=== PATIENT | female | born 1960 | race Caucasian/White ===

== ENCOUNTER 2017-01-29 12:30 | Observation (INO) | payer MEDICARE ==
--- OUTSIDE RECORDS SUMMARY | 2017-01-29 12:57 | XMS REPORT | Continuity of Care Document ---
:1960 Author Organization [facility] ([facility]) Address [address] [place] [address] Phone [phone] Care Team Providers Name Role Phone Nery Hoang Primary Care Provider [phone] Source Comments This disclosure is being made pursuant to the Care Everywhere program, applicable federal and state laws, and may not contain all informaitonavailable regarding this patient.[facility] ([facility]) Active Allergies and Adverse Reactions No Known Allergies Current Medications Prescription Sig. Disp. Refills Start Date End Date Status fluticasone-salmeterol Use 2 Puffs by Active (ADVAIR 500-50) inhaler inhalation daily. losartan 25 mg tablet Take 25 mg by mouth Active daily. ALBUTEROL SULFATE Use 2 Puffs by Active (VENTOLIN INH) inhalation as needed. cetirizine (ZYRTEC) 10 Take 10 mg by mouth Active mg tablet daily. HYDROcodone-acetaminoph Take 10-15 mL by 600 mL 0 04/23/2013 Active en (LORTAB) 7.5-500 mouth every 4 hours mg/15 mL solution UD as needed. cup Indications: PAIN sodium chloride 0.65 % use 1 [place] into the 45 mL 11 04/23/2013 Active nasal spray nose 2 times daily as needed. Indications: s/p fess amoxicillin-clavulanate Take 1 Tab by mouth 20 Tab 0 05/14/2013 Active 875-125 mg per tablet 2 times daily. Indications: ACUTE BACTERIAL SINUSITIS Active Problems Problem Noted Date Hypertension 04/22/2013 Chronic sinusitis 02/19/2013 NORA (obstructive sleep apnea) 01/22/2013 Obstructive sleep apnea 04/23/2012 Unspecified urinary incontinence 09/17/2008 Morbid obesity 05/09/2008 Social History Tobacco Use Types Packs/Day Years Used Date Never Smoker Smokeless Tobacco: Never Used Alcohol Use Drinks/Week oz/Week Comments No Last Filed Vital Signs Vital Sign Reading Time Taken Blood Pressure 143/78 06/04/2013 3:28 PM CDT Pulse 80 06/04/2013 3:28 PM CDT Temperature 36.4 C (97.5 F) 06/04/2013 3:28 PM CDT Respiratory Rate 18 06/04/2013 3:28 PM CDT Height 1.626 m (5' 4") 05/01/2013 1:42 PM CDT Weight 146.104 kg (322 lb 1.6 oz) 05/01/2013 1:42 PM CDT Body Mass Index 55.26 05/01/2013 1:42 PM CDT Oxygen Saturation 92% 04/23/2013 8:00 AM CDT Plan of Care Health Maintenance Due Date Last Done Comments HCV Screening 1960 Hepatitis B Vaccine (1 of 3 - Primary Series) 1960 Tdap Vaccine 1971 Lipid Disorder Screening 1978 MMR Vaccine 1978 Td Vaccine 1978 Cervical Cancer Screening 1990 Mammogram 2000 Colonoscopy 2010 Influenza Vaccine: Seasonal (#1) 05/23/2016 Results from Last 3 Months Not on file
--- NOTE | 2017-01-29 13:34 | HP ---
Chief Complaint - Chief Complaint Date of Service: 01/29/17 Time of Service: 13:21 Chief Complaint: Pain in belly button History of Present Illness: Pt had onset of umbilical pain that woke her from sleep at 0600 this morning associated with n/v and reported to the ER at [place]. She was given 70 mcg fentanyl , 2 mg dilaudid, 4 mg zofran. Attempts at reduction of an incarcerated umbilical hernia were unsuccessful. She was therefore transferred to our facility for definitive therapy. She complains of ongoing umbilical pain. Nausea has resolved with the zofran. - Narrative Narrative: PMFSH: Meds: Qvar inhaler Losartan 25 mg po daily Ambien 10mg po at HS Oxycodone-APAP ER 7.5/325 prn Morphine sulfate ER beads 60 mg po BID Celexa 10 mg po daily Senna 4 capsules daily Illnesses: Dyspnea Cardiovascular risk factors. HTN Asthma Operations: Hx previous incarcerated right flank hernia repaired with mesh Hysterectomy Social: Never smoker. No ETOH. No drug use. FH: Non-contributory - Patient's Past Medical History Patient History - Surgical Procedures: Hysterectomy, Hernia Repair Allergies/Adverse Reactions: Allergies Allergy/AdvReac Type Severity Reaction Status Date / Time Cephalosporins Allergy Verified 01/29/17 12:40 Exam - Exam Vital Signs: Vital Signs - Last Taken Temp 36.4 C L 01/29/17 12:33 Pulse 81 01/29/17 12:54 Resp 12 01/29/17 12:54 BP 142/72 01/29/17 12:54 Pulse Ox 95 01/29/17 12:54 Constitutional: Present: Alert, Oriented x3, Cooperative, No distress, Morbidly obese ENT Exam: Present: normal ENT inspection, hearing grossly normal Neck: Present: non-tender, normal inspection, trachea midline. Absent: lymphadenopathy (R), lymphadenopathy (L), thyromegaly Respiratory: Present: lungs clear, normal breath sounds, no respiratory distress , no accessory muscle use Cardiovascular/Chest: Present: regular rate, rhythm, no murmur Abdomen: Present: Normal bowel sounds, obese, other - Extreme pannus., hernia - Incarcerated infraumbilical hernia. No overlying discoloration. Tender to palpation. /Rectal: Present: Exam deferred Extremity: Present: normal inspection Skin Exam: Present: normal color, warm/dry Neurologic: Present: no motor/sensory deficits Appearance: Present: appropriate appearance, appropriate insight Eye contact: Present: cooperative, good eye contact, normal speech Thoughts: Present: normal thought pattern Assessment/Plan - Narrative Narrative: A: Strangulating umbilical hernia P: I recommend surgical exploration, reduction, and repair. We discussed the options, risks, and benefits of the procedure fully. She seems to understand, asks appropriate questions, and desires to proceed. We reviewed the possibility of compromised bowel, the need for resection, and/or stoma formation. - Assessment/Plan (1) Strangulated umbilical hernia Problem: Acute
[2017-01-29] MEDS ORDERED: LEVOFLOXACIN/D5W 750 MG/150 ML BAG IV SCH (13:45)
[2017-01-29 14:00] LABS: Hematocrit 44.9 % (37.0-47.0); Hemoglobin 14.7 gm/dL (12.5-16.0)
--- OUTSIDE RECORDS SUMMARY | 2017-01-29 14:02 | XMS REPORT | Continuity of Care Document ---
:1960 Author Organization [facility] ([facility]) Address [address] [place] [address] Phone [phone] Care Team Providers Name Role Phone Nery Hoang Primary Care Provider [phone] Source Comments This disclosure is being made pursuant to the Care Everywhere program, applicable federal and state laws, and may not contain all informaitonavailable regarding this patient.[facility] ([facility]) Active Allergies and Adverse Reactions No Known [...] PAIN sodium chloride 0.65 % use 1 [place] into the 45 mL 11 04/23/2013 Active [...]
[2017-01-29] MEDS ORDERED: HYDROmorphone HCL 1 MG/ML DISP.SYRIN IV ONE (14:03)
[2017-01-29] MEDS ORDERED: HYDROmorphone HCL 1 MG/ML DISP.SYRIN ONE (14:04)
[2017-01-29 14:07] LABS: Anion Gap 10.2 mmol/L (6.8-13.8); BUN/Creatinine Ratio 25.4 (9.0-21.6); Calcium * 9.4 mg/dL (7.9-10.9); Carbon Dioxide 29.8 mmol/L (24-32.6)
[2017-01-29] MEDS ORDERED: RINGERS SOLUTION,LACTATED 1,000 ML IV ONE ×2 (14:25→16:00)
[2017-01-29] MEDS ORDERED: BUPIVACAINE HCL/EPINEPHRINE 50 ML VIAL IJ ONE (15:00)
[2017-01-29] MEDS ORDERED: ONDANSETRON HCL/PF 2 MG/ML VIAL IV PRN (16:02)
[2017-01-29] MEDS: MORPHINE SULFATE 4 MG/ML SYRG IV PRN ×4 (16:23→23:28)
--- OUTSIDE RECORDS SUMMARY | 2017-01-29 16:41 | XMS REPORT | Continuity of Care Document ---
:1960 Author Organization [facility] ([facility]) Address [address] [place] [address] Phone [phone] Care Team Providers Name Role Phone Nery Hoang Primary Care Provider [phone] Source Comments This disclosure is being made pursuant to the Care Everywhere program, applicable federal and state laws, and may not contain all informaitonavailable regarding this patient.[facility] ([facility]) Active Allergies and Adverse Reactions No Known [...] PAIN sodium chloride 0.65 % use 1 [place] into the 45 mL 11 04/23/2013 Active [...]
[2017-01-29] MEDS ORDERED: HYDROmorphone HCL 2 MG/ML VIAL IV PRN (17:33)
[2017-01-29] MEDS ORDERED: HYDROmorphone HCL 1 MG/ML DISP.SYRIN IV PRN (17:33)
[2017-01-29] MEDS ORDERED: PROMETHAZINE HCL 12.5 MG in DEXTROSE 5 % IN WATER 50 ML IV PRN ×2 (17:34)
[2017-01-29] MEDS ORDERED: PROCHLORPERAZINE EDISYLATE 5 MG/ML VIAL IV PRN (17:34)
--- NOTE | 2017-01-29 18:56 | HP ---
Chief Complaint - Chief Complaint Date of Service: 01/29/17 Time of Service: 17:35 Chief Complaint: abdominal pain History of Present Illness: Misti is a 56 year old female with a PMH of HTN, DJD, chronic opoid use that presented to the ER at [place] where she was diagnosed with an incarcerated umbilical hernia, which was attempted to be reduced at that facility but was unsuccessful. Patient was taken to [facility] ER where she was assessed and then taken to surgery for a successful umbilical hernia reduction and repair. Upon assessment, patient is post op on the unit and denies any cp, dyspnea or surgical pain. - Patient's Past Medical History Patient History - Medical: Anxiety, Chronic Pain, Obesity Patient History - Cardiac/Respiratory: Asthma, Hypertension Patient History - Cancer: Skin Patient History - Surgical Procedures: Hysterectomy, Hernia Repair Patient History - Other: None - Family History Father Family History - Cardiac/Respiratory: COPD Family History - Cancer: Lung Mother Family History - Medical: Family History - Cardiac/Respiratory: CVA/Stroke - Social History Living Situations: spouse Psych History: Hx of Anxiety Smoking Status: Never smoker Have you smoked in the past 12 months: No Patient requests Smoking Cessation Consult: No Initiate information on Smoking Cessation: No Alcohol Use: none Drug Use: none Review Of Systems (GEN) - Review of Systems Generalized/Overall Review: Present: No Symptoms Reported EENTM: Present: No Symptoms Reported Respiratory: Present: No Symptoms Reported Cardiac: Present: No Symptoms Reported Abdominal: Present: No Symptoms Reported Genitourinary: Present: No Symptoms Reported Musculoskeletal: Present: Muscle Pain Neurological: Present: No Symptoms Reported Skin: Present: No Symptoms Reported Endocrine: Present: No Symptoms Reported Misc: All systems neg except as marked Allergies/Adverse Reactions: Allergies Allergy/AdvReac Type Severity Reaction Status Date / Time Cephalosporins Allergy Verified 01/29/17 17:29 Home Medications: HOME MEDICATIONS Beclomethasone Dipropionate [Qvar] 1 - 2 puff IH QID PRN 01/29/17 [Last Taken Unknown] Citalopram Hydrobromide [Celexa] 10 mg PO DAILY 01/29/17 [Last Taken Unknown] Losartan Potassium [Cozaar] 25 mg PO DAILY 01/29/17 [Last Taken Unknown] Morphine Sulfate [Ms Contin] 60 mg PO Q12H 01/29/17 [Last Taken Unknown] Sennosides [Senokot] 34.4 mg PO DAILY 01/29/17 [Last Taken Unknown] Zolpidem Tartrate [Ambien] 10 mg PO HS PRN 01/29/17 [Last Taken Unknown] oxyCODONE HCL/ACETAMINOPHEN [Percocet 7.5-325 mg Tablet] 1 each PO DAILY PRN 07/09 [Last Taken Unknown] Exam - Exam Vital Signs: Vital Signs - Last Taken Temp 36.6 C 01/29/17 16:45 Pulse 78 01/29/17 18:15 Resp 16 01/29/17 18:15 BP 125/67 01/29/17 18:15 Pulse Ox 93 01/29/17 18:15 Constitutional: Present: Alert, Oriented x3, Cooperative, No distress ENT Exam: Present: hearing grossly normal Eye Exam: bilateral eye: normal inspection Neck: Present: supple Breasts: Present: Exam deferred Respiratory: Present: chest non-tender, lungs clear, normal breath sounds, no respiratory distress Cardiovascular/Chest: Present: regular rate, rhythm, no chest tenderness, no murmur Abdomen: Present: soft, nondistended, other - surgical dressing in place on anterior abdomen and is CDI /Rectal: Present: Exam deferred Extremity: Present: normal range of motion, non-tender, no calf tenderness Skin Exam: Present: normal color, warm/dry, no cyanosis Neurologic: Present: alert, oriented x 3 Diagnostic Studies: Laboratory Results Hgb 14.7 gm/dL (12.5-16.0) 01/29/17 13:50 Hct 44.9 % (37.0-47.0) 01/29/17 13:50 Sodium 139 mmol/L (132-142) 01/29/17 13:50 Plasma Sodium 140 mmol/L (130-142) 01/29/17 13:50 Potassium 4.0 mmol/L (3.4-4.6) 01/29/17 13:50 Chloride 103 mmol/L (97-106) 01/29/17 13:50 Carbon Dioxide 29.8 mmol/L (24-32.6) 01/29/17 13:50 Anion Gap 10.2 mmol/L (6.8-13.8) 01/29/17 13:50 BUN 17 mg/dL (3-23) 01/29/17 13:50 Creatinine 0.67 mg/dL (0.4-1.4) 01/29/17 13:50 Est GFR (Non-Af Amer) 97 mL/min (60-130) 01/29/17 13:50 BUN/Creatinine Ratio 25.4 (9.0-21.6) H 01/29/17 13:50 Random Glucose 136 mg/dL (70-110) H D 01/29/17 13:50 Calcium 9.4 mg/dL (7.9-10.9) 01/29/17 13:50 Assessment/Plan - Narrative Narrative: strangulated umbilical hernia s/p repair - surgery following. pain mangement for tonight. advance diet as tolerated. HTN - cont home meds chronic opoid use - may make pain management more difficult overnight. cont pulse ox ordered as a precaution. Code status: full code VTE: SCDs while in bed Plan: home per surgery. - Assessment/Plan (1) S/P umbilical hernia repair, follow-up exam Problem: Acute (2) HTN (hypertension) Problem: Acute (3) DJD (degenerative joint disease) Problem: Acute (4) Chronic pain Problem: Acute (5) Chronic, continuous use of opioids Problem: Acute (6) Strangulated umbilical hernia Problem: Acute
[2017-01-29] MEDS ORDERED: ZOLPIDEM TARTRATE 10 MG TABLET PO PRN (20:10)
[2017-01-29] MEDS ORDERED: BUDESONIDE 0.5 MG/2 ML VIAL.NEB IH PRN (20:19)
[2017-01-29] MEDS ORDERED: oxyCODONE HCL 5 MG TABLET PO PRN (20:20)
[2017-01-29] MEDS ORDERED: oxyCODONE HCL/ACETAMINOPHEN 1 TAB TABLET PO PRN (20:21)
[2017-01-29] MEDS: MORPHINE SULFATE 60 MG TABLET.SA PO SCH (20:45)
[2017-01-30 06:02] LABS: Hematocrit 42.7 % (37.0-47.0); Hemoglobin 13.6 gm/dL (12.5-16.0); Mean Cell Volume 86.3 fl (78-100); Mean Corpuscular Hemoglobin 27.5 pg (27-31); Mean Corpuscular Hgb Conc 31.9 g/dl (32-36); Mean Platelet Volume 9.5 fl (6.0-9.5); Neutrophil % 66.4 % (42-75.0); Platelet Count 322 K/mm3 (150-450); Red Blood Count 4.95 M/mm3 (4.2-5.4); Red Cell Distribution Width 13.2 % (11.5-14.0); White Blood Count 10.5 K/mm3 (4.0-10.5)
[2017-01-30 06:12] LABS: Anion Gap 10.3 mmol/L (6.8-13.8); BUN/Creatinine Ratio 20.3 (9.0-21.6); Calcium * 8.7 mg/dL (7.9-10.9); Carbon Dioxide 30.6 mmol/L (24-32.6); Estimated Creat Clear 84.8; Potassium 3.9 mmol/L (3.4-4.6)
--- NOTE | 2017-01-30 08:11 | PN ---
Subjective - Date and Time Seen Date: 01/30/17 Time: 08:03 Subjective Narrative: POD1 Repair strangulating hernia. Minimal pain. No other c/o. Objective - Review of Systems Generalized/Overall Review: Reports: No Symptoms Reported - Vitals Vitals: Last Vital Signs Temp 36.4 C L 01/30/17 07:19 Pulse 78 01/30/17 07:19 Resp 16 01/30/17 07:19 BP 132/89 01/30/17 07:19 Pulse Ox 96 01/30/17 07:19 - Abnormal Lab Findings Abnormal Lab Findings: Abnormal Lab Results 01/30/17 Range/Units 05:45 MCHC 31.9 L (32-36) g/dl Immature Gran # (Auto) 0.04 H (0.000-0.0310) K/mm3 Neutrophils # 7.0 H (1.3-6.0) K/mm3 - Exam Constitutional: Present: Alert, Oriented x3, Cooperative, No distress Abdomen: Present: other - Drsg C/D/I Assessment/Plan Plan Narrative: A: Doing well P: Probably home today. No lifting > 20 lb x 6 wks Abdominal binder if we can find her size FU 2 wks - Problems/Diagnosis (1) Strangulated umbilical hernia Problem: Acute
[2017-01-30] MEDS: MORPHINE SULFATE 60 MG TABLET.SA PO SCH (08:48)
[2017-01-30] MEDS ORDERED: SENNOSIDES 8.6 MG TABLET PO SCH (09:00)
[2017-01-30] MEDS ORDERED: CITALOPRAM HYDROBROMIDE 10 MG TABLET PO SCH (09:00)
[2017-01-30] MEDS ORDERED: LOSARTAN POTASSIUM 50 MG TABLET PO SCH (09:00)
--- NOTE | 2017-01-30 10:34 | DS ---
(1) S/P umbilical hernia repair, follow-up exam Problem: Acute (2) HTN (hypertension) Problem: Chronic Qualifiers: Hypertension type: essential hypertension Qualified Code(s): I10 - Essential (primary) hypertension (3) DJD (degenerative joint disease) Problem: Chronic Qualifiers: Osteoarthritis location: unspecified site (4) Chronic pain Problem: Chronic Qualifiers: Chronic pain type: other chronic pain Qualified Code(s): G89.29 - Other chronic pain (5) Chronic, continuous use of opioids Problem: Acute (6) Strangulated umbilical hernia Problem: Acute Description of Stay: Misti is a 56 year old female with a PMH of HTN, DJD, chronic opoid use that presented to the ER at [place] where she was diagnosed with an incarcerated umbilical hernia, which was attempted to be reduced at that facility but was unsuccessful. Patient was taken to [facility] ER where she was assessed and then taken to surgery for a successful umbilical hernia reduction and repair. Patient stayed overnight after surgery for observation and was released the next day. Procedures Performed: see notes below List Procedures: umbilical hernia repair by dr. hampton Discharge Disposition: Home self care Disposition: Home self-care Condition: Stable Discharge Activity: Activity as tolerated, Other - Do not lift over 20 lbs Discharge Diet: General/regular food Referrals: Beka Ferraro DO [Primary Care Provider] - Consultation Done:: general surgery Problem Oriented Discharge Instructions to Patient/Family: Open Hernia Repair, Care After Additional Patient Instructions (free text): Do not lift more than 20 pounds. follow up with Dr. Lowe in 2 weeks. 02/13 at 10:00. Follow up with your primary care physician in 3-[address] Hoang 02/20 at 9:00 wear abdominal binder daily as directed. Prescriptions (Any new or edited meds): Medical Supply, Miscellaneous [Tablet Cutter] 1 each MC DAILY #1 each Complete Home Medications List: Complete Home Medication List: Beclomethasone Dipropionate [Qvar] 1 - 2 puff IH QID PRN 01/29/17 Citalopram Hydrobromide [Celexa] 10 mg PO DAILY 01/29/17 Losartan Potassium [Cozaar] 25 mg PO DAILY 01/29/17 Morphine Sulfate [Ms Contin] 60 mg PO Q12H 01/29/17 Sennosides [Senokot] 34.4 mg PO DAILY 01/29/17 Zolpidem Tartrate [Ambien] 10 mg PO HS PRN 01/29/17 oxyCODONE HCL/ACETAMINOPHEN [Percocet 7.5-325 mg Tablet] 1 each PO DAILY PRN 07/09 Medical Supply, Miscellaneous [Tablet Cutter] 1 each MC DAILY #1 each 01/30/17
[2017-01-30 11:01] VITALS: BP 143/85
== END 2017-01-30 13:30 | disposition home or self-care (01) ==
LOC: ER 12:30 → AMB 13:58 → MS 16:37
PROVIDERS: ADMIT Nurse Practitioner Critical Care Medicine; ATTEND Family Medicine
PROC: 0WUF0JZ Supplement Abdominal Wall with Synthetic Substitute, Open Approach (ICD-10-PCS; principal; 2017-01-29 14:30)
DX: K42.0 Umbilical hernia with obstruction, without gangrene (principal)
CPT/HCPCS: 36415; 49587; 80048; 85014; 85018; 85025; 96365; 96375; 96376; G0378

== ENCOUNTER 2017-02-06 11:30 | Inpatient (IN) | payer MEDICARE ==
[2017-05-15] MEDS ORDERED: RINGER'S SOLUTION,LACTATED 1,000 ML IV PRN (06:00)
[2017-05-15] MEDS ORDERED: VANCOMYCIN HCL 1 GM in DEXTROSE 5 % IN WATER 250 ML IV PRN ×2 (06:00)
[2017-05-15] MEDS ORDERED: MORPHINE SULFATE 15 MG TABLET.SA PO PRN (06:00)
[2017-05-15] MEDS ORDERED: CLINDAMYCIN PHOSPHATE 900 MG in DEXTROSE 5 % IN WATER 100 ML IV PRN ×2 (06:00)
--- NOTE | 2017-05-15 10:16 | PREOP NOTE ---
Preoperative Progress Note - Preoperative Changes Changes to Preop Condition?: No Changes
[2017-05-15] MEDS ORDERED: RINGER'S SOLUTION,LACTATED 1,000 ML IV ONE (10:50)
[2017-05-15] MEDS: ROPIVACAINE HCL/PF 100 MG, EPINEPHrine 0.2 MG, KETOROLAC TROMETHAMINE 30 MG in NORMAL S... IJ PRN ×2 (12:12→12:30)
[2017-05-15] MEDS: TRANEXAMIC ACID 1,000 MG in NORMAL SALINE 100 ML IV PRN ×2 (12:13→12:40)
[2017-05-15] MEDS ORDERED: PROMETHAZINE HCL 5 MG in DEXTROSE 5 % IN WATER 50 ML IV PRN ×2 (13:13)
[2017-05-15] MEDS ORDERED: oxyCODONE HCL/ACETAMINOPHEN 1 TAB TABLET PO PRN (13:13)
[2017-05-15] MEDS ORDERED: ONDANSETRON HCL/PF 2 MG/ML VIAL IV PRN (13:13)
[2017-05-15] MEDS ORDERED: ACETAMINOPHEN 500 MG TABLET PO PRN (13:13)
[2017-05-15] MEDS ORDERED: MAG HYDROX/ALUMINUM HYD/SIMETH 30 ML UDC PO PRN (13:13)
[2017-05-15] MEDS ORDERED: ZOLPIDEM TARTRATE 5 MG TABLET PO PRN (13:13)
[2017-05-15] MEDS ORDERED: MAGNESIUM HYDROXIDE 30 ML UDC PO PRN (13:13)
[2017-05-15] MEDS ORDERED: DEXTROSE 5%-LACTATED RINGERS 1,000 ML IV PRN (13:13)
[2017-05-15] MEDS ORDERED: diphenhydrAMINE HCL 50 MG/ML VIAL IV PRN (13:13)
[2017-05-15] MEDS ORDERED: MORPHINE SULFATE 60 MG TABLET.SA PO SCH ×2 (13:15→21:00)
--- NOTE | 2017-05-15 13:19 | OR ---
Operative Report - Dictated Report Narrative: Date: 05/15/2017 Preoperative diagnosis: Left Knee degenerative joint disease. Postoperative diagnosis: Left Knee degenerative joint disease. Procedure: Left Total knee arthroplasty. Surgeon: Vel Altman M.D. City Planning Aide: Ron Tian PA-C Anesthesia: Spinal with regional block and local periarticular joint injection. Complications: None Specimens: Bone for disposal. Estimated blood loss: Minimal. Tourniquet time: 90 Minutes at 350 millimeters of mercury. Retained implants: Depuy Attune size 6 narrow left lugged cemented posterior stabilized femoral component. Size 4 fixed-bearing cemented tibial platform. 6 by 5 millimeter posterior stabilized cross-linked tibial insert. 35 millimeter medialized patella button. Indications: Mrs. Youssef is a 56-year-old female who has had long-standing left knee pain. This patient was followed in my clinic for period of time with significant complaints of left knee pain consistent with arthritic changes. She had failed conservative measures including, but not limited to, activity modification, passage of time, medications, and other conservative measures. Patient wished to proceed with surgical treatment. The risks, benefits, and alternatives were discussed in clinic. The risks of , blood clots, bleeding, infection, nerve/tendon blood vessel/ injury, malposition of components, intraoperative fracture, postoperative limited range of motion, persistent pain, failure of components, and need for additional procedures. Patient wished to proceed consent was obtained after answering all questions. Procedure: After marking the correct extremity on the floor, the patient was taken to the operating room. A timeout was performed. IV antibiotics consisting of vancomycin and clindamycin secondary to positive MRSA screening and cephalosporin allergy were administered prior to the procedure. A regional followed by spinal anesthetic was induced by anesthesia, per my request, on the operative table with all bony prominences well-padded. Koroma catheter was placed, and a bump was placed under the operative side buttock. SCDs and JEFF hose were utilized on the nonoperative leg. A well-padded tourniquet was applied to the operative thigh. The operative leg was then pre-scrubbed with alcoho,l prepped, and draped in a standard sterile fashion. After exsanguinating the extremity with an Esmarch bandage, the tourniquet was inflated. After marking out the anterior knee for standard incision centered over the patella, the skin was incised and dissected down to the joint retinaculum. The joint retinaculum was marked out as well as the horizontal axis of the patella, and a standard medial parapatellar arthrotomy was then made. The most proximal aspect of the quadriceps tendon and the patella tendon insertion were protected from release. A partial synovectomy was performed as well as a resection of the infrapatellar fat pad. The distal femoral fat pad proximal to the trochlea was also resected using cautery. The soft tissues were elevated off the medial aspect of the proximal tibia using a Tan elevator ensuring that we did not transect the medial collateral ligament. Upon initial evaluation range of motion was approximately 0 degrees to 110 degrees of flexion. There were signs of advanced arthrosis in the medial, lateral, and patellofemoral joint spaces. There were large marginal osteophytes which were removed with a rongeur. The knee was hyperflexed and the patella was tucked laterally. Protecting the surrounding soft tissues with Homans, an entry drill was placed down the femoral canal using Whitesides line for guidance into the entry point. The intramedullary femoral alignment barb was utilized in order to cut the distal femur in 5 degrees of valgus resecting 10 millimeters of bone. Next the distal femur was sized to a size 6. A posterior referencing guide was utilized to place the distal femoral cutting block in 3 degrees of external rotation. This was pinned into place. The rotation was confirmed both visually and based on anatomic landmarks. The 4 in 1 cutting jig of the appropriate size was utilized in order to make all bony cuts. The angle wing was used to ensure no notching. Retractors were utilized in order to protect surrounding soft tissues. This cut did not result in any excessive notching. We then cut the box centered over the distal femur. This allowed for resection of the anterior and posterior cruciate ligaments. I then turned my attention to the preparation of the tibia. Using an extra medullary tibial alignment barb, 3 millimeters of bone was resected off the medial articular surface. This was made perpendicular to the mechanical axis of the joint with the alignment barb centered over the ankle mortise. The alignment barb was checked and was noted to be parallel to the mechanical axis, centered over the medial one third of the tibial tubercle, paralleling the anterior surface of the tibia. We then turned our attention to the remaining meniscus and soft tissues. These were removed while protecting the surrounding ligaments and soft tissues. The marginal osteophytes off the anterior, posterior, medial, lateral aspects of the femur and tibia were removed. The tibia was sized out to a size 4. Next the tibia was drilled and punched in an externally rotated position. Next the trial femur and a series of tibial inserts were utilized in order to allow for full extension and maximal flexion. It was found that a 5 millimeter insert gave the best range of motion and stability at multiple flexion points as well as at full extension there was less than 2 mm of gapping both medially and laterally. There is minimal anterior translation with the knee at 90 degrees of flexion and no signs of being able to dislocate the knee. The patella was then prepared. The initial thickness was 21 millimeters. This was reamed down to 12 millimeters parallel to the anterior surface of the patella. It was sized out to a size 35 medialized patella button. This was then drilled and trialed. Without any medial restraint the patella tracked appropriately and did not sublux or dislocate. At this point, it was felt these were the appropriate sized implants, and all trials were removed. The standard periarticular joint injection consisting of ropivacaine, Toradol, and epinephrine were injected into the periarticular joint tissues. The bony surfaces were thoroughly irrigated with a pulsatile- suction saline irrigation device. A bone plug from the prior resected anterior chamfer cut was placed into the drill hole at the distal femur. The bony surfaces were then dried in preparation for placement of the implants. The cement was vacuum mixed per the four corner former machine operator's instructions. The cement was placed on the dry bony surfaces and posterior aspect of the implants. The implants were impacted into place, removing all extruded cement. At this point anesthesia administered tranexamic acid per protocol intravenously. The knee was placed in extension with axial loading with the trial insert while the cement cured. Once the cement cured, all remaining extruded cement was removed. The knee was placed through a range of motion with the trial insert to ensure appropriate range of motion and stability. Final range of motion was approximately 0 to 120 degrees. The knee was again thoroughly irrigated with pulsatile saline lavage. The final polyethylene insert was then impacted into place ensuring no retained soft tissues. The remaining periarticular joint injection was injected. A medium Hemovac drain was placed exiting superior laterally. The knee was then placed over a triangle and the arthrotomy was closed with interrupted #1 Vicryl after thoroughly irrigating the joint. The deep and subcutaneous tissues were closed with interrupted oh and 3-0 Vicryl respectively. Skin was closed with a running subcutaneous 3-0 Monocryl and Prineo Dermabond dressing. 4 x 4's, Sof-Rol, and a full leg Gerry wrap were applied. All sponge, needle, blade, and instrument counts were correct prior to closing the wounds. Postoperative condition: The patient was awoken and transferred to the postanesthesia care unit in stable condition. Plan is to be admitted to the inpatient medical/surgical floor postoperatively for 24 hours of IV antibiotics , physical therapy, occupational therapy, and medical comanagement. Patient will be weightbearing as tolerated with range of motion as tolerated. DVT prophylaxis will be with SCDs, JEFF hose, and pharmacological anticoagulation. Anticipated hospital stay is approximately 2-4 days.
[2017-05-15] MEDS ORDERED: BUDESONIDE 0.5 MG/2 ML VIAL.NEB IH PRN (13:45)
[2017-05-15] MEDS: KETOROLAC TROMETHAMINE 30 MG/ML VIAL IV SCH ×2 (14:54→19:30)
[2017-05-15] MEDS: HYDROmorphone HCL 1 MG/ML DISP.SYRIN IV PRN ×2 (16:33→19:31)
[2017-05-15] MEDS: MORPHINE SULFATE 60 MG TABLET.SA PO SCH (21:34)
[2017-05-15] MEDS: ZOLPIDEM TARTRATE 10 MG TABLET PO SCH (21:34)
[2017-05-15] MEDS: SENNOSIDES/DOCUSATE SODIUM 1 TAB TABLET PO SCH (21:34)
[2017-05-15] MEDS: CITALOPRAM HYDROBROMIDE 10 MG TABLET PO SCH (21:35)
[2017-05-15] MEDS ORDERED: VANCOMYCIN HCL 1 GM in DEXTROSE 5 % IN WATER 250 ML IV SCH ×2 (23:13)
[2017-05-16] MEDS: KETOROLAC TROMETHAMINE 30 MG/ML VIAL IV SCH ×4 (01:05→18:34)
[2017-05-16] MEDS: oxyCODONE HCL 5 MG TABLET PO PRN ×7 (01:06→23:35)
[2017-05-16 06:10] LABS: Hematocrit 37.5 % (37.0-47.0); Hemoglobin 12.2 gm/dL (12.5-16.0); Mean Cell Volume 84.3 fl (78-100); Mean Corpuscular Hemoglobin 27.4 pg (27-31); Mean Corpuscular Hgb Conc 32.5 g/dl (32-36); Mean Platelet Volume 9.2 fl (6.0-9.5); Platelet Count 261 K/mm3 (150-450); Red Blood Count 4.45 M/mm3 (4.2-5.4); Red Cell Distribution Width 13.7 % (11.5-14.0)
[2017-05-16 06:23] LABS: Anion Gap 7.5 mmol/L (6.8-13.8); BUN/Creatinine Ratio 14.5 (9.0-21.6); Calcium * 8.5 mg/dL (7.9-10.9); Carbon Dioxide 32.3 mmol/L (24-32.6); Estimated Creat Clear 71.4; Potassium 3.8 mmol/L (3.4-4.6)
--- NOTE | 2017-05-16 08:09 | PN ---
Subjective - Date and Time Seen Date: 05/16/17 Time: 08:06 Subjective Narrative: Subjective: Reports mild pain. Was able to sit on the side of the bed with therapy. Pain is well-controlled. Voiding without any complications. Tolerating by mouth intake. Denies any nausea or vomiting. Denies calf pain. Slept well. Physical exam: Alert and oriented to person, place and time Left lower Extremity: Palpable dorsalis pedis pulse. Sensation grossly intact to light touch. Dressings clean and dry. Able to flex and extend ankle and toes. No excessive drainage. Calf and thigh are soft and nontender. Assessment: Postop day 1 status post left total knee arthroplasty. Plan: Continue with physical and occupational therapy weightbearing as tolerated. Continue with anticoagulation. 24 hours postoperative prophylactic antibiotics. Pain control with goal to rely on oral medications. She does take chronic MS Contin at home which was resumed as well as an increase in her when necessary oxycodone. Continue bowel regimen. Will need 6 weeks with walker or assitive device to protect joint while ambulating during the recovery process. Discharge planning. Discontinue drain and Koroma catheter. Repeat labs in a.m. Objective - Vitals Vitals: Last Vital Signs Temp 36.9 C 05/16/17 03:53 Pulse 62 05/16/17 03:53 Resp 16 05/16/17 03:53 BP 129/57 05/16/17 03:53 Pulse Ox 93 05/16/17 03:53 - Abnormal Lab Findings Abnormal Lab Findings: Abnormal Lab Results 05/16/17 05/16/17 Range/Units 06:05 06:05 Hgb 12.2 L (12.5-16.0) gm/dL Random Glucose 116 H (70-110) mg/dL [facility]aut[facility] Physician Documentation - Urinary Catheter Management Urethral (Koroma) Date of Insertion: 05/15/17 Time of Insertion: 11:30 Assessment/Plan - Problems/Diagnosis (1) Chronic, continuous use of opioids Problem: Acute (2) Chronic pain Problem: Chronic Qualifiers: (3) DJD (degenerative joint disease) Problem: Chronic (4) HTN (hypertension) Problem: Chronic Qualifiers: (5) Acute blood loss anemia Problem: Acute (6) S/P total knee replacement Problem: Acute Qualifiers: Laterality: left Qualified Code(s): Z96.652 - Presence of left artificial knee joint
[2017-05-16] MEDS: MORPHINE SULFATE 60 MG TABLET.SA PO SCH ×2 (08:30→20:17)
[2017-05-16] MEDS: LOSARTAN POTASSIUM 50 MG TABLET PO SCH (08:34)
[2017-05-16] MEDS: SENNOSIDES/DOCUSATE SODIUM 1 TAB TABLET PO SCH ×2 (08:36→20:18)
[2017-05-16] MEDS ORDERED: CITALOPRAM HYDROBROMIDE 10 MG TABLET PO SCH (09:00)
[2017-05-16] MEDS: ENOXAPARIN SODIUM 40 MG/0.4 ML SYRG SC SCH (11:28)
[2017-05-16] MEDS: CITALOPRAM HYDROBROMIDE 10 MG TABLET PO SCH (20:17)
[2017-05-16] MEDS: ZOLPIDEM TARTRATE 10 MG TABLET PO SCH (20:17)
[2017-05-17] MEDS: KETOROLAC TROMETHAMINE 30 MG/ML VIAL IV SCH ×2 (00:33→06:49)
[2017-05-17] MEDS: oxyCODONE HCL 5 MG TABLET PO PRN ×3 (02:43→14:55)
[2017-05-17 05:57] LABS: Hematocrit 37.1 % (37.0-47.0); Mean Cell Volume 84.3 fl (78-100); Mean Corpuscular Hemoglobin 27.3 pg (27-31); Mean Corpuscular Hgb Conc 32.3 g/dl (32-36); Mean Platelet Volume 9.6 fl (6.0-9.5); Platelet Count 279 K/mm3 (150-450); Red Cell Distribution Width 13.9 % (11.5-14.0); White Blood Count 9.4 K/mm3 (4.0-10.5)
[2017-05-17 06:10] LABS: Anion Gap 8.2 mmol/L (6.8-13.8); Calcium * 8.7 mg/dL (7.9-10.9); Estimated Creat Clear 60.9; Potassium 4.2 mmol/L (3.4-4.6)
[2017-05-17] MEDS: SENNOSIDES/DOCUSATE SODIUM 1 TAB TABLET PO SCH (09:21)
[2017-05-17] MEDS: LOSARTAN POTASSIUM 50 MG TABLET PO SCH (09:22)
[2017-05-17 09:23] VITALS: BP 102/61
[2017-05-17] MEDS: MORPHINE SULFATE 60 MG TABLET.SA PO SCH (09:23)
[2017-05-17] MEDS: ENOXAPARIN SODIUM 40 MG/0.4 ML SYRG SC SCH (13:08)
--- NOTE | 2017-05-17 13:32 | DS ---
(1) Chronic, continuous use of opioids Problem: Acute (2) Chronic pain Problem: Chronic Qualifiers: (3) DJD (degenerative joint disease) Problem: Chronic (4) HTN (hypertension) Problem: Chronic Qualifiers: (5) Acute blood loss anemia Problem: Acute (6) S/P total knee replacement Problem: Acute Qualifiers: Laterality: left Qualified Code(s): Z96.652 - Presence of left artificial knee joint Description of Stay: Mrs. Youssef was admitted to the floor after undergoing left total knee arthroplasty. Tolerated this well. Was admitted to the floor postoperatively for 24 hours of IV antibiotics, pain control, medical comanagement, and occupational and physical therapy. OT and PT were consulted to assist with activities of daily living and ambulation. Was made weightbearing as tolerated with range of motion as tolerated. Pain was initially controlled with IV regimen. This was transitioned to oral once tolerating a by mouth intake. Was resumed on home diet and medications. Had a Koroma catheter inserted and the operating room which was discontinued on postoperative day 1. A drain was placed intraoperatively into the knee which was discontinued on postoperative day 1. Lovenox SCD and JEFF hose were utilized for DVT prophylaxis. Vital signs remained stable to the hospital course. Serial labs were obtained which showed a final hemoglobin of 12.0 grams. BMP was reviewed and was stable. Physical examination throughout the hospital course showed an extremity that had sensation that was intact to light touch, palpable pulses, a benign wound, motor intact to the toes, ankle, and knee. Knee range of motion was approximately 0 degrees to 60 degrees. Once an oral pain regimen was tolerated and physical therapy goals were met, it was felt that they were stable for discharge to home. She is to home with home health due to limited mobility, difficulty traveling outside the home, need for additional assistance secondary to her total knee arthroplasty, need for specialized care order to appropriately recover, and limited assistance at home. Instructions: Continue with weightbearing as tolerated and range of motion as tolerated. She is okay to shower as long as there is no drainage from the wound. She is instructed to keep the wound clean and dry and over with dry gauze and tape if there is any drainage. Change every 2-3 days as needed. Continue with physical therapy. Resume home diet. Report any fever over 101.5 Fahrenheit, uncontrolled pain, increased drainage, foul odor of drainage, new or increased calf pain or shortness of breath, or any other significant complaints. A 325mg dialy aspirin will be started after finishing anticoagulation if not allergic. Continue with JEFF hose on the operative extremity until instructed otherwise. No driving until instructed otherwise. Follow up in approximately 10-14 days. Procedures Performed: see notes below List Procedures: Left total knee arthroplasty Discharge Disposition: home health care Disposition: Home self-care Condition: Good Discharge Activity: Activity as tolerated, Weight bearing Discharge Diet: General/regular food Long Term Therapy: Physicial Therapy Referrals: Beka Ferraro DO [Staff Physician] - Additional Patient Instructions (free text): Having [facility] [place] [facility] to do Physical Therapy at home when discharged. Follow-up in the office with Dr. Altman on Monday05/30/17@10:45am. Prescriptions (Any new or edited meds): Rivaroxaban [Xarelto] 10 mg PO DAILY #7 tablet oxyCODONE HCL [Oxycodone] 10 mg PO Q2H PRN #90 tablet PRN Reason: Pain Complete Home Medications List: Complete Home Medication List: Beclomethasone Dipropionate [Qvar] 1 - 2 puff IH QID PRN 01/29/17 Citalopram Hydrobromide [Celexa] 10 mg PO DAILY 01/29/17 Losartan Potassium [Cozaar] 25 mg PO DAILY 01/29/17 Morphine Sulfate [Ms Contin] 60 mg PO Q12H 01/29/17 Zolpidem Tartrate [Ambien] 10 mg PO HS 01/29/17 Sennosides/Docusate Sodium [Senna-Docusate Sodium Tablet] 4 each PO DAILY Rivaroxaban [Xarelto] 10 mg PO DAILY #7 tablet 05/17/17 oxyCODONE HCL [Oxycodone] 10 mg PO Q2H PRN #90 tablet 05/17/17 Amb Orders for Discharge: PT Evaluation and Treatment Facility: [facility], Location: Rehabilitation Services
== END 2017-05-17 15:20 | disposition home health service (06) | DRG 470 ==
LOC: MS 05-15 07:43
PROVIDERS: ADMIT Orthopaedic Surgery; ATTEND Orthopaedic Surgery
PROC: 0SRD0J9 Replacement of Left Knee Joint with Synthetic Substitute, Cemented, Open Approach (ICD-10-PCS; principal; 2017-05-15 11:30)
DX: M17.12 Unilateral primary osteoarthritis, left knee (principal); D62 Acute posthemorrhagic anemia; I10 Essential (primary) hypertension; J45.909 Unspecified asthma, uncomplicated; Z85.828 Personal history of other malignant neoplasm of skin; Z88.1 Allergy status to other antibiotic agents